=== PATIENT | female | born 1995 | race Caucasian/White ===

== ENCOUNTER 2025-05-27 18:33 | Outpatient (CLI) | payer OTHER, SELFPAY ==
[2025-05-27 18:57] VITALS: BP 123/74; PULSE 75; RESP 16; TEMP 37.1; O2SAT 98
[2025-05-27 19:06] VITALS: BMI 25.6
[2025-05-27 20:34] VITALS: BP 126/78; PULSE 68; RESP 16; TEMP 36.2
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
== END 2025-05-27 20:45 | disposition home or self-care (01) ==
LOC: WPOUT 18:39 → WP 18:40
PROVIDERS: Referring Provider Obstetrics & Gynecology; Visit Provider Obstetrics & Gynecology
DX: Z34.93 Encounter for supervision of normal pregnancy, unspecified, third trimester (principal); Z79.82 Long term (current) use of aspirin; Z3A.30 30 weeks gestation of pregnancy
CPT/HCPCS: 59025; 59050; 99221; G0378

== ENCOUNTER 2025-08-05 05:22 | Inpatient (IN) | payer OTHER, SELFPAY ==
[2025-08-05] VITALS (55 sets, daily range): BP systolic 97–148; BP diastolic 55–83; PULSE 69–116; RESP 16–18; TEMP 36.6–37.8; O2SAT 97–100; BMI 28.3
[2025-08-05 04:38] LABS: ROM Internal Control Test YES-OK TO RESULT pt. (Internal QC)
[2025-08-05 04:39] LABS: ROM Patient Test POSITIVE (Negative); Record Kit Lot#, ROM+ K3607
[2025-08-05] MEDS: Lactated Ringers 1,000 ML 999 ML IV (05:45)
[2025-08-05 06:01] LABS: Hematocrit 34.6 % (37-47); Hemoglobin 11.7 g/dL (12.0-15.0); Immature Granulocytes Count 0.130 X10^3/uL (0.0-0.0); Mean Corp Hgb Conc 33.8 g/dL (32-36); Mean Corpuscular Volume 80.3 fL (81-99); Mean Platelet Vol. 9.8 fl (6.2-12.0); NRBC Flagged by Analyzer 0 % (0-5); Platelet Count 195 K/mm3 (150-450); RBC Distribution Width CV 14.3 % (11.6-14.6); RBC Distribution Width SD 41.8 fl (35.1-43.9); Red Blood Count 4.31 M/mm3 (4.2-5.4); White Blood Count 14.3 K/mm3 (4.4-11.0)
[2025-08-05 06:27] LABS: Syphilis Antibodies Nonreactive (Nonreactive)
[2025-08-05] MEDS: Penicillin G Pot 5,000,000 UNITS in 0.9% Normal Saline (100mL MB+) 100 ML 150 UNITS IV (06:40)
[2025-08-05] MEDS: Lactated Ringers 1,000 ML 200 ML IV ×3 (06:59→13:46)
[2025-08-05] MEDS: fentaNYL-bupivacaine (epidural) 100 ML BAG EPIDURAL ×3 (06:59→15:48)
--- NOTE | 2025-08-05 08:45 | PCM.HP.OB ---
HPI - General General Date of Admission: 08/05/25 Date of Service: 08/27/25 HPI Narrative MIRIAN ORTEZ, is a 30 F who presents with LOF. Maternal Data Information RANGEL Calculator Estimated Delivery Date Method Current WG Current Estimate 08/04/25 Manual 40w 1d [facility] Medical History Anxiety Asthma Anemia Kidney stones Spina bifida Home Medications ?Medication ?Instructions ?Recorded ?Last Taken ?Type ascorbic acid (vitamin C) 500 mg 500 mg PO DAILY 05/27/25 05/27/25 07:00 History chewable tablet (Acerola C) 500 mg aspirin 81 mg tablet,delayed 81 mg PO DAILY 05/27/25 05/27/25 07:00 History release (Adult Low Dose Aspirin) 81 mg ferrous sulfate 325 mg (65 mg 325 mg PO DAILY 05/27/25 05/27/25 07:00 History iron) tablet (Iron (ferrous 325 mg sulfate)) folic acid 800 mcg tablet 600 mcg PO DAILY 05/27/25 05/27/25 07:00 History 600 mcg vitamins no.144-folic 2 tab PO DAILY 05/27/25 05/27/25 07:00 History acid 400 mcg chewable tablet 2 tabs () Allergy/AdvReac Type Severity Reaction Status Date / Time No Known Allergies Allergy Verified 05/27/25 19:02 Social History Smoking Status: Former smoker History Elective abortions Hx Para 0 Spontaneous abortions Hx # Term Pregnancies Ectopic pregnancies Hx # Pregnancies Multiple births # of living children NST FHR Rate Baby A Baseline: 135 Variability:: Moderate Accelerations:: 15 x 15 Decelerations:: Variable Uterine Activity:: Q2-5 minutes Vital Signs Vital Signs Vital Signs: 08/05/25 06:28 08/05/25 06:28 08/05/25 06:28 Temperature Temperature Source Pulse Rate 71 80 Respiratory Rate Blood Pressure 140/80 H BP Systolic 140 BP Diastolic 80 Pulse Ox 08/05/25 06:28 08/05/25 06:33 08/05/25 06:33 Temperature Temperature Source Pulse Rate 72 Respiratory Rate Blood Pressure BP Systolic BP Diastolic Pulse Ox 97 98 08/05/25 06:37 08/05/25 06:37 08/05/25 06:39 Temperature Temperature Source Pulse Rate 72 74 Respiratory Rate Blood Pressure 125/78 H BP Systolic 125 BP Diastolic 78 Pulse Ox 08/05/25 06:39 08/05/25 06:42 08/05/25 06:42 Temperature Temperature Source Pulse Rate 83 Respiratory Rate Blood Pressure 110/69 BP Systolic 110 BP Diastolic 69 Pulse Ox 98 08/05/25 06:44 08/05/25 06:44 08/05/25 06:46 Temperature Temperature Source Pulse Rate 84 Respiratory Rate Blood Pressure 104/56 L BP Systolic 104 BP Diastolic 56 Pulse Ox 98 08/05/25 06:46 08/05/25 06:46 08/05/25 06:46 Temperature Temperature Source Temporal Pulse Rate 81 Respiratory Rate 16 Blood Pressure BP Systolic BP Diastolic Pulse Ox 08/05/25 06:46 08/05/25 06:49 08/05/25 06:49 Temperature 97.9 F Temperature Source Pulse Rate 88 Respiratory Rate Blood Pressure BP Systolic BP Diastolic Pulse Ox 97 08/05/25 06:50 08/05/25 06:50 08/05/25 06:54 Temperature Temperature Source Pulse Rate 87 95 Respiratory Rate Blood Pressure 103/59 L BP Systolic 103 BP Diastolic 59 Pulse Ox 08/05/25 06:54 08/05/25 06:55 08/05/25 06:55 Temperature Temperature Source Pulse Rate 87 Respiratory Rate Blood Pressure 97/56 L BP Systolic 97 BP Diastolic 56 Pulse Ox 99 08/05/25 06:59 08/05/25 06:59 08/05/25 07:01 Temperature Temperature Source Pulse Rate 76 Respiratory Rate Blood Pressure 109/58 L BP Systolic 109 BP Diastolic 58 Pulse Ox 97 08/05/25 07:01 08/05/25 07:04 08/05/25 07:04 Temperature Temperature Source Pulse Rate 93 84 Respiratory Rate Blood Pressure BP Systolic BP Diastolic Pulse Ox 98 08/05/25 07:09 08/05/25 07:09 08/05/25 07:14 Temperature Temperature Source Pulse Rate 69 98 Respiratory Rate Blood Pressure BP Systolic BP Diastolic Pulse Ox 98 08/05/25 07:14 08/05/25 07:19 08/05/25 07:19 Temperature Temperature Source Pulse Rate 100 Respiratory Rate Blood Pressure BP Systolic BP Diastolic Pulse Ox 98 98 08/05/25 07:21 08/05/25 07:21 08/05/25 07:22 Temperature 97.9 F Temperature Source Pulse Rate 78 Respiratory Rate Blood Pressure 102/60 BP Systolic 102 BP Diastolic 60 Pulse Ox 08/05/25 07:23 08/05/25 07:32 08/05/25 07:32 Temperature Temperature Source Pulse Rate 69 Respiratory Rate 16 Blood Pressure BP Systolic BP Diastolic Pulse Ox 98 08/05/25 07:35 08/05/25 07:35 08/05/25 07:35 Temperature Temperature Source Pulse Rate 90 Respiratory Rate 16 Blood Pressure 110/65 BP Systolic 110 BP Diastolic 65 Pulse Ox 08/05/25 07:44 08/05/25 07:44 08/05/25 07:46 Temperature Temperature Source Pulse Rate 72 Respiratory Rate Blood Pressure 102/58 L BP Systolic 102 BP Diastolic 58 Pulse Ox 97 08/05/25 07:46 Temperature Temperature Source Pulse Rate 81 Respiratory Rate Blood Pressure BP Systolic BP Diastolic Pulse Ox Weight Weight: 160 lb Body Mass Index (BMI) 28.3 Physical Exam Const alert, oriented x3 and no apparent distress GI non-tender, non-distended and no masses Inspection: gravid external exam normal Narrative: cvx - 2.5/80/-1, per RN Labs Labs Labs: Blood Type AB POSITIVE Antibody Screen NEGATIVE Hct, (37-47) 34.6 % L Hgb, (12.0-15.0) 11.7 g/dL L Syphilis Total Ab, (Nonreactive) Nonreactive Assessment & Plan (1) 40 weeks gestation of : COMMENT: @ 40&1 (2) SROM (spontaneous rupture of membranes): PLAN: Plan Admit to L&D SROM - start pitocin augmentation GBS positive - on pcn EFW - less than 4500g Pain - comfortable with epidural Routine care
[2025-08-05] MEDS: Oxytocin 15 Units/NS 250ml 15 UNITS/250 ML IV.SOLN 2 UNITS IV (09:31)
[2025-08-05] MEDS: Amnioinfusion- 0.9% NS 1,000 ML IV.SOLN. 1000 ML INTRA-UTER (10:59)
[2025-08-05] MEDS: Penicillin G 3,000,000 Units 50 ML 100 UNITS IV ×2 (11:04→15:08)
[2025-08-05] MEDS: DiphenhydrAMINE 50 MG/ML Syringe IV (16:26)
--- NOTE | 2025-08-05 18:37 | EX.PCM.OBRPT ---
Maternal Data Information RANGEL Calculator Estimated Delivery Date Method Current WG Current Estimate 08/04/25 Manual 40w 1d Operative Report (OB) Procedure Details Date of Procedure: 08/05/25 Procedure Start Time: 19:18 Procedure Stop Time: 19:56 Pre-Operative Diagnosis: Failure to Progress (Failure to dilate) Post-Operative Diagnosis: Same as Pre-operative diagnosis Classification: Scheduled Type of Anesthesia: Epidural and Spinal Antibiotic Given: Ancef 2 grams IV x1 and Zithromax 500 mg/5 mL X1 Drain: Hollins to straight drain Estimated Blood Loss: 900ml Fluids Replaced: 400ml Findings Description of surgery: Patient presented with SROM. She made cervical change to 6cm and no further dilation for 6 hours. Decision was made to proceed with a after discussing R/B/A. The patient was taken to the operating room where epidural anesthesia was dosed & found to be adequate. She was prepped and draped in the dorsal supine position with a leftward tilt. A Pfannenstiel skin incision was made approximately 2 cm above the symphysis pubis and carried through to the underlying fascia with the scalpel. The fascia was incised incised in the midline and extended laterally with the Torres scissors. The rectus muscles were in the midline and the peritoneum was entered carefully and bluntly. The peritoneal incision was stretched and the bladder blade was inserted. Vesicouterine peritoneum was tented up, incised & then bladder flap created gently. The uterine incision was made in a low transverse fashion with the scalpel and extended superiorly and inferiorly with blunt dissection. The 's head was brought to the incision in the flexed position and delivered without difficulty. The head was gently guided to allow delivery of the anterior and posterior shoulders. The body then delivered with fundal pressure in the standard fashion. The 3VC cord was clamped and cut in slightly delayed fashion. The was handed off to the waiting pediatric associate. The placenta was delivered with fundal massage and gentle traction in the standard fashion. The uterus was exteriorized and cleared of clots and debris. The uterine incision was closed with #1 Vicryl suture in a running locked fashion. Monocryl suture was used in an imbricating fashion. The incision was examined and was found to be hemostatic. The uterus was returned to the abdominal cavity. After irrigating Hemoblast was placed over the uterine incision as some areas were denuded (but hemostatic). The rectus muscle was examined and any bleeding was Bovie cauterized. The fascia was closed with PDS suture in a running standard fashion. The subcutaneous tissue was examining and any bleeding was Bovie cauterized. The subcutaneous tissue was reapproximated with interrupted sutures. The skin was closed in a subcuticular fashion by the GLAZE HANDLER while I was present in the OR. The remainder of the procedure was performed by me with assistance. Surgical findings: normal maternal uterus and adnexa Presentation: Vertex Amniotic Membrane Rupture Type: Artificial Amniotic Fluid Description: Clear Placental Delivery Description: Expressed Placenta Disposition: [facility] Specimen collected: No Cord Vessel Description: 3 Vessels Cord Entanglement: Around neck x 1, loose Nuchal Cord Compression: With compression A gender: Male (1 minute): 2 (5 minute): 5 (10 at 10 minutes) Delayed Cord Clamping: Yes Coach Builder burial vault setter: Yes Planer Mill Grader: Ana Cavazos Tasks completed by medical assistant float: Opening & closing and Retracting Complications Complications: No
[2025-08-05] MEDS: Cefazolin 1 GM/5 ML Vial 2 GM IV (19:13)
[2025-08-05] MEDS: Lidocaine 2% (5ml sdv) 5 ML VIAL.MPF 10 ML EPIDURAL (19:14)
[2025-08-05] MEDS: Oxytocin 15 Units/NS 250ml 15 UNITS/250 ML IV.SOLN 334 UNITS IV (19:25)
[2025-08-05] MEDS: morphine PF (epidural) 5 MG/10 ML Vial 3 MG EPIDURAL (19:39)
[2025-08-05] MEDS: Oxytocin 15 Units/NS 250ml 15 UNITS/250 ML IV.SOLN 83 UNITS IV (20:15)
[2025-08-05] MEDS: Ketorolac 30 MG/ML Syringe IV (21:01)
[2025-08-05] MEDS: Lactated Ringers 1,000 ML 100 ML IV (23:21)
[2025-08-06] VITALS (8 sets, daily range): BP systolic 98–111; BP diastolic 54–77; PULSE 64–94; RESP 16–17; TEMP 36.1–37.1; O2SAT 96–99
[2025-08-06] MEDS: Ketorolac 30 MG/ML Syringe IV ×3 (03:06→15:12)
[2025-08-06 06:20] LABS: Hematocrit 23.3 % (37-47); Hemoglobin 7.4 g/dL (12.0-15.0); Mean Corp Hgb Conc 31.8 g/dL (32-36); Mean Corpuscular Volume 82.9 fL (81-99); Mean Platelet Vol. 9.6 fl (6.2-12.0); Platelet Count 142 K/mm3 (150-450); RBC Distribution Width CV 14.6 % (11.6-14.6); RBC Distribution Width SD 44.6 fl (35.1-43.9); Red Blood Count 2.81 M/mm3 (4.2-5.4); White Blood Count 16.2 K/mm3 (4.4-11.0)
--- NOTE | 2025-08-06 06:34 | NURSING ---
0634 Informed md of Pt's hgb dropping from 11.7 to 7.4, pt is asymptomatic otherwise. Md aware of pt's vitals and fundal assessment. Md states she will update oncoming Md and the provider will decide about ordering IV iron.
--- NOTE | 2025-08-06 09:03 | PCM.PN.BLA ---
Progress Note Pain well-controlled. Average lochia. Denies headache or visual changes. No nausea or vomiting. Physical Exam Const alert General Appearance: cooperative GI GI Narrative: soft, moderate distention, fundus firm, appropriately tender. Abdominal bandage clean dry and intact Assessment & Plan Assessment/Plan (1) Acute blood loss anemia: PLAN: IV iron today. Recheck CBC tomorrow. Tolerating anemia well at this point. If becomes symptomatic we will recheck CBC earlier. Patient is comfortable this plan. (2) deliv NOS-unsp: PLAN: Routine postoperative care today. is breast-feeding and doing well.
[2025-08-06] MEDS: Senna/Docusate Sodium 1 Tablet PO (09:08)
[2025-08-06] MEDS: Iron Sucrose Complex 200 MG in 0.9% Normal Saline (100mL Bag) 100 ML 220 MG IV (10:13)
[2025-08-06] MEDS: DiphenhydrAMINE 50 MG/ML Syringe 25 MG IV (10:14)
[2025-08-06] MEDS: 0.9% Saline Lock 10 ML Syringe IV (15:12)
[2025-08-07 02:00] VITALS: BP 115/77; PULSE 82; RESP 18; TEMP 36.6; O2SAT 99
[2025-08-07 06:47] LABS: Hematocrit 25.0 % (37-47); Hemoglobin 8.0 g/dL (12.0-15.0); Mean Corp Hgb Conc 32.0 g/dL (32-36); Mean Corpuscular Volume 84.2 fL (81-99); Mean Platelet Vol. 9.7 fl (6.2-12.0); Platelet Count 162 K/mm3 (150-450); RBC Distribution Width CV 15.0 % (11.6-14.6); RBC Distribution Width SD 45.4 fl (35.1-43.9); Red Blood Count 2.97 M/mm3 (4.2-5.4); White Blood Count 17.5 K/mm3 (4.4-11.0)
[2025-08-07 07:46] VITALS: BP 119/74; PULSE 84; RESP 18; TEMP 37; O2SAT 97
--- NOTE | 2025-08-07 08:33 | PCM.DC.SUM ---
Providers Date of Admission: 08/05/25 Primary Care Physician: No Primary Care Phys Reason For Visit: C SECTION Diagnosis Discharge Diagnosis (1) Acute blood loss anemia: Status: Acute Code(s): D62 - Acute posthemorrhagic anemia (2) deliv NOS-unsp: Status: Acute (3) Post-operative pain: Status: Acute Code(s): G89.18 - Other acute postprocedural pain (4) Care and examination of lactating mother: Status: Acute Code(s): Z39.1 - Encounter for care and examination of lactating mother Medications at Discharge Home Medications ascorbic acid (vitamin C) 500 mg chewable tablet (Acerola C) 500 mg PO DAILY 05/27/25 ferrous sulfate 325 mg (65 mg iron) tablet (Iron (ferrous sulfate)) 325 mg PO DAILY 05/27/25 folic acid 800 mcg tablet 600 mcg PO DAILY 05/27/25 vitamins no.144-folic acid 400 mcg chewable tablet () 2 tab PO DAILY 05/27/25 acetaminophen 500 mg tablet 1,000 mg (2 x 500 mg) PO Q6 #0 tabs 08/07/25 ibuprofen 600 mg tablet 600 mg PO Q6H #0 tabs 08/07/25 oxycodone 5 mg tablet 5 - 10 mg (1 - 2 x 5 mg) PO Q4H PRN PRN Pain Score 4-10 3 days #10 tabs 08/07/25 Hospital Course Operations section Procedures None Summary of Care Provided Minutes Spent on Discharge: 15 Hospital Course: Patient had section. Hospital course was uneventful. Physical Exam Narrative Patient seen at bedside. Denies headache, SOB, CP. Ambulating and voiding without difficulty. Desires discharge home today. Const alert and no apparent distress General Appearance: cooperative and comfortable Exam Limitations: no limitations HEENT normocephalic Eyes General Eye: normal appearance of both eyes Neck full ROM General: normal visual inspection Chest Chest: symmetrical chest wall rise Resp normal respiratory effort and normal air movement Effort and Inspection: symmetric chest movement Auscultation: clear to auscultation bilaterally Cardio regular rate and regular rhythm GI normal to inspection, nondistended, normoactive bowel sounds Back/Spine normal ROM Extremity full ROM and no calf tenderness General Extremity: normal exam except as noted Skin no rashes or lesions noted Wound Narrative: Dressing is dry and intact. Neuro CN's II-XII intact bilaterally Psych mental status grossly normal Weight / BMI Weight Weight: 160 lb Body Mass Index (BMI) 28.3 ABG / Lab / Microbiology Data 08/07/25 06:25 Laboratory: Laboratory Results - last 24 hr 08/07/25 06:25: WBC 17.5 H, RBC 2.97 L, Hgb 8.0 L, Hct 25.0 L, MCV 84.2, MCH 26.9 L, MCHC 32.0, RDW Std Deviation 45.4 H, RDW Coeff of Roger 15.0 H, Plt Count 162, MPV 9.7 D/C Instructions Discharge Activity: May Drive (2 weeks) and May Shower May resume sexual activity in: 6-8 weeks Weight Bearing Status: Weight bearing as tolerated Lifting Restricted to (Lbs): 25 Call your doctor if your incision/area has: Continuous Slow Oozing, Sudden Increased Bleeding, Increased Pain/ Swelling, Increased Redness, Foul Smelling Discharge and Swelling at the incision site Call your doctor if you observe: Fever of 101 or Higher, Numbness or Tingling, Using more than 1 pad per hour, Shortness of breath, Dizziness, Swelling in the ankles, Chest pain, Calf discomfort and Uncontrolled pain Suture Line Care: Avoid Pulling/Pushing Remove Dressing in: 5 days (Remove yourself or call office and schedule appointment for dressing removal.) DC O2, CPAP, BIPAP Needs Home O2 Discharge instructions: No When: 5 days for dressing removal or 2 weeks for post appointment. Meaningful Use Info Meaningful Use Meaningful Use Diagnoses (Choose all that apply): None applicable Discharge Plan Admission Admit Date/Time: 08/05/25 05:22 Primary Reason for Your Visit: Delivery Attending Provider: Franck Kern Primary Care Provider: Care Physician,Nereida Primary Discharge Orders/Prescriptions Prescriptions: New acetaminophen 500 mg Tablet 1,000 mg PO Q6 Qty: 0 0RF ibuprofen 600 mg Tablet 600 mg PO Q6H Qty: 0 0RF oxycodone 5 mg Tablet 5 - 10 mg PO Q4H PRN PRN (Reason: Pain Score 4-10) 3 Days Qty: 10 0RF Continued 400 mcg tablet,chewable 2 tab PO DAILY ferrous sulfate [Iron (ferrous sulfate)] 325 mg (65 mg iron) tablet 325 mg PO DAILY ascorbic acid (vitamin C) [Acerola C] 500 mg tablet,chewable 500 mg PO DAILY folic acid 800 mcg tablet 600 mcg PO DAILY Discontinued aspirin [Adult Low Dose Aspirin] 81 mg tablet,delayed release (DR/EC) 81 mg PO DAILY Referrals / Follow Up: Seema Bah CNM [Med Staff - [facility] Practice Prof, Obstetrics] Care Physician,No Primary [Primary Care Provider, Medical] Disposition Disposition (needs filled in before D/C Order can be placed): Home, Self Care
[2025-08-07] MEDS: Senna/Docusate Sodium 1 Tablet PO (10:48)
--- NOTE | 2025-08-07 13:09 | CASEMGMT ---
Social Work Assessment Labor and Delivery Unit Patient Address: [address] [place] [address] Phone number: [phone] Date of Referral: 08/05/25 Time of Referral:? [id number] Referred By: Dr. Kern Date of Intervention: ??08/07/25 Time of Intervention:? 1044 Reason for Referral:? anxiety, depression Sw completed chart review and acknowledges social work consult due to maternal mental health. Sw presented to bedside and introduced self to mother of baby (STAN- Kenzie) and father of baby (FOB- Олег). Also present was maternal grandmother. MOB stated that it was okay to complete assessment with grandma present. Sw completed psychosocial assessment. History obtained from: medical records, MOB and FOB and grandmother Household composition: Currently residing in the family home is STAN, SHANTHI, FOB's father and baby when ready for discharge. STAN states that they actually sold their home and are in the process of remodeling a home they purchased in [place], [place]. STAN states that she is originally from [place], and her mom and step dad currently reside there. STAN states that she wanted to be closer to her mom when her baby was born, so they are in the process of doing that. MOB states that they have until September 10 to finish their remodel and move into their new home. Patient's parent/guardian status:? Parents have been together for 9 years after meeting each other in college. No concerns reported of domestic violence or intimate partner violence. [place] baby is first baby for parents together. STAN reports that she got last year and unfortunately had a miscarriage early on in her , and states that baby is a significant blessing to them. ? Medical History: STAN is 30 year old female who is 2, para 0- now 1 following labor and delivery of . STAN received routine care during with [facility]. STAN presented to hospital in active labor on 08/04/25 and delivered baby on 08/05/25 via due to non-reassuring heart tones. Baby anson Godoy, was born at 40 weeks gestation?weighing 6lb 5oz and had apgars of 2, 5 and 10 at one, five and ten minutes of life, respectfully. STAN reports that she is breast feeding baby and providing expressed breast milk. Baby will be followed by [facility] until they move to [place] and transfer pediatric care closer to that area. Educational Status:? Both parents graduated from high school, SHANTHI graduated from college. STAN attended some college but did not obtain a degree, instead she enrolled in the [employer]. STAN states that she has intentions of returning to college once baby is older. No issues with learning, reading or comprehension. 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 STAN was working at [employer] until May, stating that she was working on the [employer] and planning on moving and with the it became too much to do it all. Infant Supplies:?? All necessary baby supplies obtained, including: car seat, safe sleep space, clothes, diapers and wipes. Childcare/Caregiver(s):? STAN, SHANTHI and maternal grandmother will be the primary caregivers to baby. Transportation:?? Both parents have their drivers license and reliable means of transportation, no barriers. Programs/Agencies Involved: ?Currently parents are not connected to any community resources that provide them with any financial assistance. MOB did ask if they would be eligible for financial assistance in the future if SHANTHI's income went down given that they are moving and his job is going to be changing. Harshil provided parents with information from the [place] [employer] income guidelines. Harshil encouraged parents to talk to their local JFS once they are moved and have a better idea of what their income looks like to determine if they are or aren't' eligible for anything. ?? Children Services/Legal Issues:??No history of children services involvement, no issues or concerns warranting referral to be made at this time. ? Behavioral Health Issues: ??Mental Health History: SHANTHI states that he has underlying anxiety and some depression. SHANTHI states that he always worries about everyone else and wants them to be healthy, so he worries about that which in turn causes him to have anxiety. STAN states that she has anxiety, depression and PTSD. STAN reports that her father was an addict, and growing up all she knew of him was of him using or drinking alcohol. STAN states that ten years ago (the anniversary is this Monday) her father committed suicide with drugs. Following this incident STAN enrolled in the [employer], to help her get away from people and places that reminded her of his life, and at that time she was given the official diagnosis of PTSD. STAN states that when she was in the [employer] she was prescribed SSRI's and antidepressants, however she did not like how they made her feel so when she exited the [employer] she stopped taking them. STAN states that she has not taken any pharmacological medications in several years now. STAN states that her anxiety was really bad last year when she suffered her miscarriage. STAN reflected back and states that this year is probably the happiest that she has ever been, and it is because she has her family unit, and her baby is here and he is healthy and that is all she has ever wanted. ??? Substance Use History:??Parents both report to using THC regularly prior to getting . STAN states that using THC was to self medicate for her anxiety. However she was able to recognize that in the end it was actually causing her more anxiety than it was helping her. Both STAN and SHANTHI believe that they were able to successfully get because they stopped using THC, started going to the gym, eating healthier and stopped drinking alcohol- which they only did occasionally. Family History:?STAN reports that her father was an alcoholic and a drug addict. STAN does not know what specific substances her father was using until he passed. SHANTHI reports that his father has mental health concerns, but does not have a formal diagnosis. SHANTHI reports that when he was 5 his mom was 19 weeks , and diagnosed with breast cancer. SHANTHI states that unfortunately his mom and the baby as a result of the breast cancer. SHANTHI states that his father also lost his dad and his mom right in front of him, which has caused his dad a lot of trauma and probably PTSD. SHANTHI states that his dad lives with them because he lost his job, and his home and is not able to survive on his own.? Drug Screens: ?No drug screens observed while completing chart review. ? Family/Social Stressors:? STAN states that the end of the was stressful due to the amount of work she was doing with the move, and being 9 months . STAN states that looking forward at their finances is also stressful, because currently they do not have a mortgage, and they will be going forward, and their income is going to decrease until SHANTHI finds a new job due to moving further away from his place of employment. Support Systems: Maternal grandma, and MOB's step dad Depression/Shaken Baby/Safe Sleeping:? Sw educated parents on signs and symptoms of baby blues and mood and anxiety disorders to be mindful of going into this period. Sw explained to parents that MOB is more at risk for experiencing symptoms due to her mental health history. MOB expressed understanding, and states that they have friends who have had baby's and have struggled with their mental health, so they have witnessed first hand what some of the red flags are to be on the lookout for. FOB and maternal grandma state that they are extremely close with MOB and will be able to see right away if MOB is struggling. MOB states that she is also really open with her emotions and talks through what she is feeling. MOB reports that she is not currently connected to any community mental health services or supports, but is not against getting connected in the future if that would be helpful for her. Sw educated parents on shaken baby prevention and ABCs of safe sleep, parents express understanding. ASSESSMENT:? MOB and baby admitted following labor and delivery. MOB with mental health history positive for anxiety, depression and PTSD. SHANTHI's father also residing with parents and he has a significant past full of trauma. SHANTHI states that his father is not warm and fuzzy, and he is hopeful that with the welcoming of their baby it may give his dad an opportunity to turn a new leaf and start to invest in himself and potentially get connected to some mental health supports that can help him. Sw encouraged SHANTHI to have a conversation with his dad about how he is feeling regarding these concerns. Maternal grandmother expressing gratitude towards FONuzhat and how well he has done with baby and MOB, stating that he has taken to being a father since the baby was born. While meeting with parents grandmother and MOB appropriately tearful throughout parts of conversation when discussing their traumatic past and how far they have come with each other and how happy they are to have baby. It is evident that MOB has a lot of love and support from her mother and FOB. Throughout conversation MOB was open and receptive to sw, she opened up and talked about her life without being prompted to do so and in a calm and collected manner. MOB and FOB were observed to hold baby lovingly and appropriately. Parents have obtained all necessary baby supplies and have limited but strong supports in place. PLAN:? No other services requested or indicated. MOB and baby to be discharged when medically ready. Parents were provided literature regarding: signs and symptoms of baby blues and mood and anxiety disorders, Help Me Grow, shaken baby prevention, ABCs of safe sleep and a list of county resources that are available for them should any needs present themselves. Adrian Huerta, POLE CLASSIFIER, FURNACE FILLER
[2025-08-07 15:10] VITALS: BP 115/81; PULSE 77; RESP 16; TEMP 36.4; O2SAT 97
[2025-08-07 20:19] VITALS: BP 127/81; PULSE 85; RESP 16; TEMP 36.6; O2SAT 98
[2025-08-08 03:15] VITALS: BP 135/97; PULSE 81; RESP 16; TEMP 37.1; O2SAT 97
--- NOTE | 2025-08-08 07:13 | PCM.DC.SUM ---
Providers Date of Admission: 08/05/25 Primary Care Physician: No Primary Care Phys Reason For Visit: C SECTION Diagnosis Discharge Diagnosis (1) Acute blood loss anemia: Status: Acute Code(s): D62 - Acute posthemorrhagic anemia (2) deliv NOS-unsp: Status: Acute (3) Post-operative pain: Status: Acute Code(s): G89.18 - Other acute postprocedural pain (4) Care and examination of lactating mother: Status: Acute Code(s): Z39.1 - Encounter for care and examination of lactating mother Medications at Discharge Home Medications ascorbic acid (vitamin C) 500 mg chewable tablet (Acerola C) 500 mg PO DAILY 05/27/25 ferrous sulfate 325 mg (65 mg iron) tablet (Iron (ferrous sulfate)) 325 mg PO DAILY 05/27/25 folic acid 800 mcg tablet 600 mcg PO DAILY 05/27/25 vitamins no.144-folic acid 400 mcg chewable tablet () 2 tab PO DAILY 05/27/25 acetaminophen 500 mg tablet 1,000 mg (2 x 500 mg) PO Q6 #0 tabs 08/07/25 ibuprofen 600 mg tablet 600 mg PO Q6H #0 tabs 08/07/25 oxycodone 5 mg tablet 5 - 10 mg (1 - 2 x 5 mg) PO Q4H PRN PRN Pain Score 4-10 3 days #10 tabs 08/07/25 Hospital Course Operations section Procedures None Summary of Care Provided Minutes Spent on Discharge: 15 Hospital Course: Patient had section. Hospital course was uneventful. Physical Exam Narrative Patient seen at bedside. Pain controlled. Ambulating and voiding without difficulty. Passing flatus. with support. Denies headache, vision changes, SOB, or CP. Desires discharge home today. Const alert and no apparent distress General Appearance: cooperative and comfortable Exam Limitations: no limitations HEENT normocephalic Eyes General Eye: normal appearance of both eyes Neck full ROM General: normal visual inspection Chest Chest: symmetrical chest wall rise Resp normal respiratory effort and normal air movement Effort and Inspection: symmetric chest movement Auscultation: clear to auscultation bilaterally Cardio regular rate and regular rhythm GI normal to inspection, nondistended, normoactive bowel sounds Back/Spine normal ROM Extremity full ROM and no calf tenderness General Extremity: normal exam except as noted Skin no rashes or lesions noted Wound Narrative: Dressing is dry and intact. Neuro CN's II-XII intact bilaterally Psych mental status grossly normal Weight / BMI Weight Weight: 160 lb Body Mass Index (BMI) 28.3 ABG / Lab / Microbiology Data 08/07/25 06:25 D/C Instructions Discharge Activity: May Drive (2 weeks) and May Shower May resume sexual activity in: 6-8 weeks Weight Bearing Status: Weight bearing as tolerated Lifting Restricted to (Lbs): 25 Call your doctor if your incision/area has: Continuous Slow Oozing, Sudden Increased Bleeding, Increased Pain/ Swelling, Increased Redness, Foul Smelling Discharge and Swelling at the incision site Call your doctor if you observe: Fever of 101 or Higher, Numbness or Tingling, Using more than 1 pad per hour, Shortness of breath, Dizziness, Swelling in the ankles, Chest pain, Calf discomfort and Uncontrolled pain Suture Line Care: Avoid Pulling/Pushing Remove Dressing in: 5 days (Remove yourself or call office and schedule appointment for dressing removal.) DC O2, CPAP, BIPAP Needs Home O2 Discharge instructions: No When: 5 days for dressing removal or 2 weeks for post appointment. Meaningful Use Info Meaningful Use Meaningful Use Diagnoses (Choose all that apply): None applicable Discharge Plan Admission Admit Date/Time: 08/05/25 05:22 Primary Reason for Your Visit: Delivery Attending Provider: Franck Kern Primary Care Provider: Ingrid PhysicianNereida Primary Discharge Orders/Prescriptions Prescriptions: New acetaminophen 500 mg Tablet 1,000 mg PO Q6 Qty: 0 0RF ibuprofen 600 mg Tablet 600 mg PO Q6H Qty: 0 0RF oxycodone 5 mg Tablet 5 - 10 mg PO Q4H PRN PRN (Reason: Pain Score 4-10) 3 Days Qty: 10 0RF Continued 400 mcg tablet,chewable 2 tab PO DAILY ferrous sulfate [Iron (ferrous sulfate)] 325 mg (65 mg iron) tablet 325 mg PO DAILY ascorbic acid (vitamin C) [Acerola C] 500 mg tablet,chewable 500 mg PO DAILY folic acid 800 mcg tablet 600 mcg PO DAILY Discontinued aspirin [Adult Low Dose Aspirin] 81 mg tablet,delayed release (DR/EC) 81 mg PO DAILY Referrals / Follow Up: Seema Bah CNM [Med Staff - Adv Practice Prof, Obstetrics] Care Physician,No Primary [Primary Care Provider, Medical] Disposition Disposition (needs filled in before D/C Order can be placed): Home, Self Care
[2025-08-08 07:46] VITALS: BP 126/77; PULSE 72; RESP 16; TEMP 36.7; O2SAT 98
[2025-08-08] MEDS: Senna/Docusate Sodium 1 Tablet PO (09:54)
[2025-08-08 13:12] VITALS: BP 126/90; PULSE 70; RESP 16; TEMP 36.8; O2SAT 100
== END 2025-08-08 13:40 | disposition home or self-care (01) | DRG 787 ==
LOC: WPOUT 05:29 → WP 05:29
PROVIDERS: Obstetrics & Gynecology; Admitting Provider Obstetrics & Gynecology; Visit Provider Obstetrics & Gynecology
DX: O42.92 Full-term premature rupture of membranes, unspecified as to length of time between rupture and onset of labor (principal); O98.82 Other maternal infectious and parasitic diseases complicating childbirth; D62 Acute posthemorrhagic anemia; Q05.9 Spina bifida, unspecified; O76 Abnormality in fetal heart rate and rhythm complicating labor and delivery; O90.81 Anemia of the puerperium; B95.1 Streptococcus, group B, as the cause of diseases classified elsewhere; O62.0 Primary inadequate contractions; Z79.82 Long term (current) use of aspirin; O99.892 Other specified diseases and conditions complicating childbirth; Z3A.40 40 weeks gestation of pregnancy; Z37.0 Single live birth; Z87.891 Personal history of nicotine dependence
CPT/HCPCS: 59025; 59050; 84112; 85025; 85027; 86780; 86850; 86900; 86901; 99221; J1756; A4216; G0378; J2405